=== PATIENT | female | born 1965 | race Caucasian/White ===

== ENCOUNTER 2017-03-03 17:26 | Emergency (ER) | payer MEDICAID ==
[2017-03-03 17:26] VITALS: BMI 32.9
[2017-03-03 17:33] VITALS: BP 169/101; PULSE 92; RESP 20; TEMP 98.2; O2SAT 100
[2017-03-03] MEDS ORDERED: Sodium Chloride 0.9% 1,000 ML IV STA (17:59)
--- NOTE | 2017-03-03 19:25 | ED PDOC ---
HPI: Abdomen Time Seen by Provider: 03/03/17 18:01 Chief Complaint (Nursing): GI Problem Chief Complaint (Provider): abdominal pain History Per: Patient History/Exam Limitations: no limitations Additional Complaint(s): 51yo F in ED with c/o of chronic abd pain-in ED states she vomited blood this morning with 10/10abd pain. states she saw her pmd today who refereed her to ER. admits to taking percocets for pain and states it is not effective. PT files have been reviewed from previous ED visits-noted that pt has filled multiple narcotics Rx at various pharmacies and has AMA from ED for not receiving Dilaudid. denies fever chill fever opr change in BM. Pt has a long standing hx of chronic abd pain and intractable vomiting. Past Medical History Reviewed: Historical Data, Nursing Documentation, Vital Signs Vital Signs: Last Vital Signs Temp 98.2 F 03/03/17 17:30 Pulse 92 H 03/03/17 17:30 Resp 20 03/03/17 17:30 BP 169/101 H 03/03/17 17:30 Pulse Ox 100 03/03/17 17:30 - Medical History PMH: Anemia, Anxiety, Arthritis, Asthma, Back Problems (herniated discs), Bronchitis, Depression, Diverticulitis, Gastritis, Gastrointestinal Ulcer, HTN, Hypercholesterolemia, Pancreatitis Denies: Dementia, Hyperthyroidism, Hypothyroidism, Kidney Stones, Chronic Kidney Disease, Sexually Transmitted Disease, TIA - Surgical History Surgical History: Appendectomy, Cholecystectomy, Endoscopy, Hernia Repair ( ventral x3, last 03/10/16) - Family History Family History: States: Unknown Family Hx - Immunization History Hx Tetanus Toxoid Vaccination: Yes Hx Influenza Vaccination: Yes (2015) Hx Pneumococcal Vaccination: Yes (2014) - Home Medications Home Medications: Ambulatory Orders Medication Instructions Recorded Fluticasone/Salmeterol 250/50 2 puff IH BID 10/02/15 [Advair Diskus 250/50] amLODIPine [Norvasc] 10 mg PO DAILY 10/02/15 Sucralfate [Carafate Tab] 1 gm PO BID #0 03/25/16 Zolpidem Tartrate [Ambien] 10 mg PO HS #30 tablet 03/27/16 Ondansetron ODT [Zofran ODT] 4 mg PO Q6H #28 odt 11/18/16 Pantoprazole Sodium [Protonix] 40 mg PO DAILY #30 tablet. 10/16/16 oxyCODONE/Acetaminophen [Percocet 1 ea PO Q6H #28 tab 10/16/16 5/325 mg Tab] - Allergies Allergies/Adverse Reactions: Allergies Allergy/AdvReac Type Severity Reaction Status Date / Time iodine Allergy Severe ANAPHYLAXIS Verified 03/03/17 17:30 Iodine and Iodide Containing Allergy Severe ANAPHYLAXIS Verified 03/03/17 17:30 Produc ketorolac tromethamine Allergy Intermediate NAUSEA Verified 03/03/17 17:30 [From Toradol] morphine Allergy Intermediate URTICARIA Verified 03/03/17 17:30 Penicillins Allergy ITCHING Verified 03/03/17 17:30 seafood Allergy Severe ANAPHYLAXIS Uncoded 11/16/16 09:20 iv contrast Allergy ITCHING Uncoded 11/16/16 09:20 Review of Systems ROS Statement: Except As Marked, All Systems Reviewed And Found Negative Constitutional: Negative for: Fever, Chills Gastrointestinal: Positive for: Nausea, Vomiting, Abdominal Pain Physical Exam - Reviewed Nursing Documentation Reviewed: Yes Vital Signs Reviewed: Yes - Physical Exam Appears: Positive for: Non-toxic, Uncomfortable, In Acute Distress Head Exam: Positive for: ATRAUMATIC, NORMAL INSPECTION, NORMOCEPHALIC Skin: Positive for: Normal Color, Warm, DRY Cardiovascular/Chest: Positive for: Regular Rate, Rhythm Respiratory: Positive for: CNT, Normal Breath Sounds Gastrointestinal/Abdominal: Positive for: Bowel Sounds, Soft, Tenderness. Negative for: Organomegaly, Mass, Distended, Guarding, Rebound, Hernia, Asicites Back: Positive for: Normal Inspection. Negative for: L CVA Tenderness, R CVA Tenderness Neurologic/Psych: Positive for: Alert, Oriented - ECG O2 Sat by Pulse Oximetry: 100 - Progress ED Course And Treament: ordered for pt were CT scan protonix cbc cmp pt ptt and zofran. however nursing staff unable to get IV access due to difficulty with finding veins. attempted to perform EJ via and attempt to use US guided IV insertion, however pt very resistant and not complaint. pt created disturbance in ED demanding morphine IM, thought PT chart shows allergy to morphine. pt states that she infact is NOT allergic to morphine. Pt explained that narcotic is the not the first line of tx for chronic pain in the ER. pt given ativan and zofran, pt not content with attempt to use nonnarcotic remedies to control pain and left ED before treatment completed. Medical Decision Making Medical Decision Making: left before treatment. Disposition - Clinical Impression Clinical Impression: Abdominal pain - Disposition Disposition: Left W/O Treatment Disposition Time: 19:29 Condition: UNKNOWN
== END 2017-03-03 19:00 | disposition left against medical advice (07) ==
LOC: H.ER 17:26
DX: R10.9 Unspecified abdominal pain (principal); I10 Essential (primary) hypertension; E78.00 Pure hypercholesterolemia, unspecified; F41.9 Anxiety disorder, unspecified

== ENCOUNTER 2018-11-17 10:16 | Day surgery (SDC) | payer OTHER, MEDICAID ==
[2018-11-17 10:58] VITALS: BMI 37.5
[2018-11-17] MEDS ORDERED: ePHEDrine 50 mg/ml Inj ONE (11:12)
[2018-11-17] MEDS ORDERED: Midazolam 2 MG/2 ML VIAL ONE ×2 (11:12→14:11)
[2018-11-17] MEDS ORDERED: Propofol 10 mg/ml Inj (20 ML) ONE ×3 (11:25→15:22)
[2018-11-17] MEDS ORDERED: Lidocaine 2% MPF (5 ml) Inj ONE (11:26)
[2018-11-17] MEDS ORDERED: Propofol 10 mg/ml 0 MG/0 ML VIAL ONE (12:00)
[2018-11-17] MEDS ORDERED: Gadodiamide 287 MG/ML VIAL (15ML) IV ONE (12:28)
[2018-11-17] MEDS ORDERED: Lidocaine 1% Inj (20ml) ONE (13:49)
--- NOTE | 2018-11-17 14:37 | VASCULAR ---
PROCEDURE: Date of procedure: 11/17/2018 Procedure: 1. Placement of a right arm PICC with ultrasound and fluoroscopic guidance, CPT 46326 2. PICC tip confirmation with spot radiograph and is in the superior vena cava Medications: 1 percent lidocaine Total Fluoro time: 56 seconds Radiation: 7.4 MGy EBL: 2 cc HISTORY: Poor venous access TECHNIQUE: Following informed consent and procedure time-out, the patient was placed supine on the interventional table and the right arm prepped and draped in the usual sterile fashion. Fluoroscopic image showed a right internal jugular vein port with catheter tip in the SVC. Ultrasound showed a patent and compressible right basilic vein. After the skin was anesthetized with lidocaine, the basilic vein was accessed with micro micropuncture technique using ultrasound guidance. A guidewire was then advanced under fluoroscopic guidance into the superior vena cava. An image documenting ultrasound guidance for vascular access was permanently saved. The length of the single-lumen 4 [place] PICC was trimmed to 20 centimeters and advanced through a peel-away sheath. The PICC was position with tip of PICC confirm a spot radiograph the subclavian vein. The PICC was secured to the patient's skin. The PICC was flushed. A biopatch and sterile dressing was applied. IMPRESSION: Placement of a single-lumen 4 [place] PICC trimmed to 20 centimeters via right basilic vein. The tip of the PICC is confirmed with spot radiograph and is in the subclavian vein. Right IJ port in place
[2018-11-17] MEDS ORDERED: Propofol 10 mg/ml 1,000 MG/100 ML VIAL ONE (15:46)
[2018-11-17] MEDS: HYDROmorphone 0.5 mg/0.5 ml ISec ONE ×3 (16:05→16:30)
[2018-11-17] MEDS ORDERED: HYDROmorphone 0.5 mg/0.5 ml ISec IVP PRN (17:06)
[2018-11-17 17:29] VITALS: TEMP 98
[2018-11-17 17:39] VITALS: BP 151/78; PULSE 74; RESP 16; O2SAT 99
== END 2018-11-17 18:40 | disposition short-term general hospital (02) ==
LOC: H.OPSURG 10:16
PROVIDERS: ATTEND Obstetrics & Gynecology
DX: Z45.2 Encounter for adjustment and management of vascular access device (principal); R20.2 Paresthesia of skin
CPT/HCPCS: 36569; 76937; 77001; J1170; J2250; J2704; J2765